=== PATIENT | male | born 1985 | race Caucasian/White ===

== ENCOUNTER 2017-03-24 13:56 | Emergency (ER) | payer OTHER, MEDICAID ==
[~2017-03-24 13:56] MED LIST: AMOXICILLIN500 M2 PO
[2017-03-24] MEDS ORDERED: HYDROCODON-ACE1 EA17 PO (14:14)
[2017-03-24] MEDS ORDERED: IBUPROFEN800 M1 PO (14:14)
[2017-03-24] MEDS ORDERED: ALLEGRA ALLERG180 M1 PO (14:15)
[2017-03-24] MEDS ORDERED: RANITIDINE HCL75 M1 PO (14:15)
[2017-03-24] MEDS ORDERED: KEFLEX500 M4 PO (17:45)
== END 2017-03-24 18:15 ==
LOC: EDMED 13:56
PROC: 0HQKXZZ Repair Right Lower Leg Skin, External Approach (ICD-10-PCS; principal; 2017-03-24)
DX: S81.811A Laceration without foreign body, right lower leg, initial encounter (principal); F17.290 Nicotine dependence, other tobacco product, uncomplicated; W45.8XXA Other foreign body or object entering through skin, initial encounter; Y92.89 Other specified places as the place of occurrence of the external cause